=== PATIENT | female | born 1990 | race Caucasian/White ===

== ENCOUNTER 2023-05-21 04:31 | Outpatient (CLI) | payer OTHER ==
[2023-05-21] MEDS: LACTATED RINGERS 1,000 ML IV ONE (04:45)
[2023-05-21] MEDS: ACETAMINOPHEN IV (For NPO) 1,000 MG in EMPTY BAG 1 BAG IVPB ONE (04:57)
[2023-05-21 05:17] LABS: Basophils % (A) 0 %; Eosinophils # (A) 0.1 k/uL (0-0.7); Eosinophils % (A) 1 %; HCT 33.5 % (34.0-46.0); HGB 11.8 gm/dL (11.4-16.0); Lymphocytes # (A) 1.7 k/uL (1.0-4.8); Lymphocytes % (A) 15 %; MCH 30.9 pg (25.0-35.0); MCHC 35.4 g/dL (31.0-37.0); MCV 87.4 fL (80.0-100.0); Mean Platelet Volume 7.6; Monocytes # (A) 0.4 k/uL (0-1.0); Monocytes % (A) 4 %; Neutrophils # (A) 8.5 k/uL (1.3-7.7); Neutrophils % (A) 79 %; Platelet Count 254 k/uL (150-450); RBC 3.83 m/uL (3.80-5.40); RDW 13.5 % (11.5-15.5); WBC 10.8 k/uL (3.8-10.6)
[2023-05-21 05:30] LABS: ALT 23 U/L (4-34); AST 53 U/L (14-36); Amylase 71 U/L (30-110); Lipase 191 U/L (23-300)
--- NOTE | 2023-05-21 07:14 | US ---
EXAMINATION TYPE: US gallbladder DATE OF EXAM: 05/21/2023 COMPARISON: NONE CLINICAL INDICATION: Female, 33 years old with history of acute upper right quadrant abdominal pain.; RUQ pain x 3 hours. Pt is 23 weeks TECHNIQUE: Multiple sonographic images of the right upper quadrant are obtained. FINDINGS: EXAM MEASUREMENTS: Liver Length: 17.6 cm Gallbladder Wall: 0.2 cm CBD: 0.3 cm Right Kidney: 10.1 x 4.9 x 4.5 cm Pancreas: Tail limited. Parts seen appear wnl Liver: Heterogeneous, possibly enlarged Gallbladder: Multiple gallstones seen Evidence for sonographic Bustillos's sign: No CBD: wnl Right Kidney: wnl IMPRESSION: 1. No evidence for acute process. 2. Cholelithiasis.
--- NOTE | 2023-05-21 11:26 | P.GSCN ---
History of Present Illness Consult date: 05/21/23 History of present illness: CHIEF COMPLAINT: Abdominal pain HISTORY OF PRESENT ILLNESS: This is a 33-year-old female who is 23 weeks . She presented to the hospital with complaints of right upper quadrant abdominal pain that started at 2 AM yesterday morning. Patient reports eating [place]ian and egg rolls for dinner last night. Patient reports having similar symptoms about 2 weeks ago that resolved on their own. Patient reports that her pain was not improving therefore she came into the ER. She did have episode of diarrhea she is also having some nausea. The pain was radiating from the right upper quadrant to her back. She denies any fever chills or sweats. Denies any prior abdominal surgeries. Ultrasound has shown evidence of cholelithiasis. Her AST was mildly elevated. PAST MEDICAL HISTORY: See below PAST SURGICAL HISTORY: See below MEDICATIONS: See below ALLERGIES: See below SOCIAL HISTORY: No illicit drug use. REVIEW OF SYSTEMS: CONSTITUTIONAL: Denies fever or chills. HEENT: Denies blurred vision, vision changes, or eye pain. Denies hemoptysis CARDIOVASCULAR: Denies chest pain or pressure. RESPIRATORY: No shortness of breath. GASTROINTESTINAL: See HPI for pertinent findings HEMATOLOGIC: Denies bleeding disorders. GENITOURINARY: Denies any blood in urine or increased urinary frequency. SKIN: Denies pruitis. Denies rash. PHYSICAL EXAM: VITAL SIGNS: Reviewed GENERAL: Well-developed in no acute distress. HEENT: No sclera icterus. Extraocular movements grossly intact. Moist buccal mucosa. Head is atraumatic, normocephalic. No nasal drainage. ABDOMEN: Soft. Nondistended. Minimal right upper quadrant tenderness with palpation NEUROLOGIC: Alert and oriented. Cranial nerves II through XII grossly intact. LABORATORY DATA: WBC 10.8 Hgb 11.8 platelets 254 AST 53 ALT 23 amylase 71 lipase 191 IMAGING: Gallbladder ultrasound no evidence for acute process. Cholelithiasis ASSESSMENT: 1. Symptomatic cholelithiasis 2. Right upper quadrant abdominal pain 3. Mildly elevated AST 4. 23 weeks PLAN: -Patient's pain has improved. Will trial low-fat diet. If patient tolerates diet, she can be discharged home with outpatient follow-up with Dr. Villatoro. Physician Organ Pipe Voicer note has been reviewed by physician. Signing provider agrees with the documented findings, assessment, and plan of care. I have personally seen and examined the patient, reviewed the PLUG SHAPER HAND /PAs history, exam and MDM and agree with the assessment and plan as written. Based on total visit time, I have performed more than 50% of the visit. As above: Patient with symptomatic cholelithiasis. May discharge if tolerates diet. Follow-up as outpatient. Past Medical History History of Any Multi-Drug Resistant Organisms: None Reported Smoking Status: Never smoker Medications and Allergies Home Medications Medication Instructions Recorded Confirmed Type Aspirin [Holcomb Aspirin EC] 81 mg PO DAILY 05/21/23 05/21/23 History Vit No.179/Iron/Folic 1 tablet PO DAILY 05/21/23 05/21/23 History [ Tablet] Allergies Allergy/AdvReac Type Severity Reaction Status Date / Time No Known Allergies Allergy Verified 05/21/23 04:34 Results - Labs 05/21/23 04:50 Abnormal Lab Results - Last 24 Hours (Table) 05/21/23 05/21/23 Range/Units 04:50 04:50 WBC 10.8 H (3.8-10.6) k/uL Hct 33.5 L (34.0-46.0) % Neutrophils # 8.5 H (1.3-7.7) k/uL AST 53 H (14-36) U/L Diabetes panel 05/21/23 Range/Units 04:50 AST 53 H (14-36) U/L ALT 23 (4-34) U/L Adrenal panel 05/21/23 Range/Units 04:50 AST 53 H (14-36) U/L ALT 23 (4-34) U/L
[2023-05-21 12:08] VITALS: BP 132/78; PULSE 87; RESP 16; TEMP 96.8
== END 2023-05-21 11:50 | disposition home or self-care (01) ==
LOC: FBPOP 04:31
PROVIDERS: ATTEND Obstetrics & Gynecology Obstetrics
DX: O26.612 Liver and biliary tract disorders in pregnancy, second trimester (principal); O99.891 Other specified diseases and conditions complicating pregnancy; K80.20 Calculus of gallbladder without cholecystitis without obstruction; R74.01 Elevation of levels of liver transaminase levels; Z3A.23 23 weeks gestation of pregnancy
CPT/HCPCS: 99214; 96361; 96365; 82150; 83690; 84450; 84460; 85025; 76705; J0131

== ENCOUNTER 2023-07-09 13:13 | Outpatient (CLI) | payer OTHER ==
[2023-07-09 14:30] LABS: Appearance,Urine Clear (Clear); Bilirubin,Urine Negative (Negative); Blood,Urine Negative (Negative); Color,Urine Yellow; Glucose,Urine (UA) Trace (Negative); Ketones,Urine Negative (Negative); Leukocyte Esterase,Urine Negative (Negative); Nitrite,Urine Negative (Negative); PH, Urine 6.5 (5.0-8.0); Protein,Urine Trace (Negative); Urobilinogen,Urine <2.0 mg/dL (<2.0)
[2023-07-09 15:05] LABS: Basophils % (A) 0 %; Eosinophils # (A) 0.1 k/uL (0-0.7); Eosinophils % (A) 1 %; HCT 33.4 % (34.0-46.0); HGB 10.9 gm/dL (11.4-16.0); Lymphocytes # (A) 1.6 k/uL (1.0-4.8); Lymphocytes % (A) 20 %; MCH 28.9 pg (25.0-35.0); MCHC 32.6 g/dL (31.0-37.0); MCV 88.6 fL (80.0-100.0); Monocytes # (A) 0.4 k/uL (0-1.0); Monocytes % (A) 5 %; Neutrophils # (A) 5.9 k/uL (1.3-7.7); Neutrophils % (A) 73 %; Platelet Count 249 k/uL (150-450); RBC 3.78 m/uL (3.80-5.40); RDW 13.6 % (11.5-15.5); WBC 8.2 k/uL (3.8-10.6)
[2023-07-09 15:17] LABS: ALT 11 U/L (4-34); AST 16 U/L (14-36); African American GFR (CKD) >90 (>60 ml/min/1.73 sqM); Blood Urea Nitrogen 4 mg/dL (7-17); LDH 153 U/L (120-246); Non-African American GFR(CKD) >90 (>60 ml/min/1.73 sqM); Uric Acid 4.6 mg/dL (3.7-7.4)
[2023-07-09 15:44] LABS: Creatinine,Urine Random 150.9 mg/dL; Protein/Creatinine Ratio,Urine 0.06
[2023-07-09 16:45] VITALS: BP 138/86; PULSE 113; RESP 16; TEMP 96.6
== END 2023-07-09 16:03 | disposition home or self-care (01) ==
LOC: FBPOP 13:13
PROVIDERS: ATTEND Obstetrics & Gynecology
DX: Z53.9 Procedure and treatment not carried out, unspecified reason (principal)
CPT/HCPCS: 59025; 81003; 82565; 82570; 83615; 84156; 84450; 84460; 84520; 84550; 85025; 99215

== ENCOUNTER 2023-09-01 06:00 | Inpatient (IN) | payer OTHER ==
[2023-09-01] MEDS ORDERED: miSOPROStoL 200 MCG TAB PO PRN (06:58)
[2023-09-01] MEDS ORDERED: OXYTOCIN 10 UNIT/ML 1 ML VIAL IM PRN (06:58)
[2023-09-01] MEDS ORDERED: TRANEXAMIC 1,000 MG/100ML-NACL 1,000 MG in EMPTY BAG 1 BAG IV PRN (06:58)
[2023-09-01] MEDS ORDERED: METHYLERGONOVINE 0.2 MG/ML 1 ML AMP IM PRN (06:58)
[2023-09-01] MEDS ORDERED: CARBOPROST TROMETHAMINE 250 MCG/ML 1 ML AMP IM PRN (06:58)
[2023-09-01] MEDS ORDERED: TERBUTALINE 1 MG/ML VIAL SQ PRN (06:58)
[2023-09-01] MEDS: LACTATED RINGERS 1,000 ML IV SCH (07:00)
[2023-09-01] MEDS: OXYTOCIN 30 UNITS/500 ML NS 30 UNIT in SALINE 1 500ML.BAG IV SCH (07:15)
[2023-09-01] MEDS: PENICILLIN G POTASSIUM 5,000,000 UNIT in DEXTROSE 5% IN WATER 100 ML IVPB STA (07:15)
[2023-09-01 07:26] LABS: Basophils % (A) 0 %; Eosinophils # (A) 0.1 k/uL (0-0.7); Eosinophils % (A) 1 %; HCT 36.3 % (34.0-46.0); HGB 11.6 gm/dL (11.4-16.0); Lymphocytes # (A) 1.9 k/uL (1.0-4.8); Lymphocytes % (A) 19 %; MCH 28.1 pg (25.0-35.0); MCV 87.7 fL (80.0-100.0); Mean Platelet Volume 8.2; Monocytes # (A) 0.5 k/uL (0-1.0); Monocytes % (A) 5 %; Neutrophils # (A) 7.4 k/uL (1.3-7.7); Neutrophils % (A) 73 %; Platelet Count 287 k/uL (150-450); RBC 4.14 m/uL (3.80-5.40); RDW 14.4 % (11.5-15.5); WBC 10.1 k/uL (3.8-10.6)
--- NOTE | 2023-09-01 07:36 | P.HPOB ---
History of Present Illness H&P Date: 09/01/23 Chief Complaint: induced hypertension 33-year-old 1 para 0 woman with an estimated due date of 09/14/2023 based on LMP consistent with first trimester ultrasound. She is admitted at 38+ weeks gestation for induction of labor secondary to -induced hypertension. She has been maintained on labetalol 200 mg twice a day with negative preeclamptic workup throughout. testing with weekly NSTs have all been reassuring. The has otherwise been complicated with gallstones that she is currently managing with the dietary changes and has followed with general surgery for Plans post .She is known group B strep positive. Laboratory data: Blood type AB+, antibody screen negative, rubella immune, V-year-old nonreactive, hepatitis B surface antigen negative, HIV negative, hep C negative, gonorrhea and clinic cultures negative, diabetes screening within normal limits, maternity 21 testing negative, group B strep positive Past medical history anxiety, cholestasis Past surgical history benign teratoma removal 2004 next Family history patient is adopted but known diabetes and hypertension next para social history she is Engaged to be , negative for tobacco alcohol and drug use. On initial assessment on labor and delivery triage patient's blood pressure is 124/79, on cervical exam she is 3-4 cm dilated, 70% and vertex in the -3 station. Artificial rupture of membranes is undertaken and clear fluid is n oted. status is currently reassuring with category 1 heart tones and no active contractions. Review of Systems All systems: negative Past Medical History Additional Past Medical History / Comment(s): Cholestasis History of Any Multi-Drug Resistant Organisms: None Reported Smoking Status: Never smoker Medications and Allergies Home Medications Medication Instructions Recorded Confirmed Type Aspirin [Crowley Aspirin EC] 81 mg PO DAILY 05/21/23 09/01/23 History Vit No.179/Iron/Folic 1 tablet PO DAILY 05/21/23 09/01/23 History [ Tablet] Labetalol [Trandate] 1 tab PO BID 09/01/23 09/01/23 History Allergies Allergy/AdvReac Type Severity Reaction Status Date / Time No Known Allergies Allergy Verified 07/09/23 13:41 Exam Intake and Output 08/31/23 09/01/23 09/01/23 22:59 06:59 14:59 Other: Weight 129.727 kg Results Result Diagrams: 09/01/23 07:00 Assessment and Plan (1) 38 weeks gestation of Current Visit: Yes Status: Acute Code(s): Z3A.38 - 38 WEEKS GESTATION OF SNOMED Code(s): 19160696 (2) induced hypertension Current Visit: Yes Status: Acute Code(s): O13.9 - GESTATIONAL HTN W/O SIGNIFICANT PROTEINURIA, UNSP TRIMESTER SNOMED Code(s): 53367902 (3) GBS (group B Streptococcus carrier), +RV culture, currently Current Visit: Yes Status: Acute Code(s): O99.820 - STREPTOCOCCUS B CARRIER STATE COMPLICATING SNOMED Code(s): 8601549092849 Plan: 33-year-old 1 para 0 admitted at 38+ weeks gestation for induction of labor secondary to -induced high per tension, no evidence of superimposed preeclampsia. She is group B strep positive and prophylactic and Antibiotics have been initiated per protocol. Status currently reassuring, anticipate normal spontaneous vaginal delivery. May have epidural anesthetic upon request in active labor.
[2023-09-01] MEDS ORDERED: fentaNYL (PF) 50 MCG/ML 5 ML AMP ONE (09:59)
[2023-09-01] MEDS ORDERED: ROPIVACAINE 5 MG/ML 30 ML VIAL ONE (09:59)
[2023-09-01] MEDS ORDERED: SODIUM CHLORIDE 0.9% 250 ML BAG ONE (09:59)
[2023-09-01] MEDS: PENICILLIN G POTASSIUM 2,500,000 UNIT in DEXTROSE 5% IN WATER 100 ML IVPB SCH (12:15)
[2023-09-01] MEDS: LIDOCAINE 0.5% (PF) 5 MG/ML (50 ML SDV) SQ PRN (14:52)
[2023-09-01] MEDS ORDERED: HYDROCORTISONE 2.5% RECTAL CREAM 30 GM TUBE RECTAL PRN (15:22)
[2023-09-01] MEDS ORDERED: ZOLPIDEM 5 MG TAB PO PRN (15:22)
[2023-09-01] MEDS ORDERED: diphenhydrAMINE 50 MG/ML 1 ML VIAL IVP PRN ×2 (15:22)
[2023-09-01] MEDS ORDERED: IBUPROFEN 600 MG TAB PO PRN (15:22)
[2023-09-01] MEDS ORDERED: LANOLIN CREAM 1 GM TUBE TOPICAL PRN (15:22)
[2023-09-01] MEDS ORDERED: BENZOCAINE/MENTHOL SPRAY 1 GM/SPRAY AEROSOL TOPICAL PRN (15:22)
[2023-09-01] MEDS ORDERED: diphenhydrAMINE 50 MG CAP PO PRN (15:22)
[2023-09-01] MEDS ORDERED: diphenhydrAMINE 25 MG CAP PO PRN (15:22)
[2023-09-01] MEDS ORDERED: ACETAMINOPHEN TAB 325 MG TAB PO PRN (15:22)
[2023-09-01] MEDS ORDERED: SIMETHICONE 80 MG CHEWABLE PO PRN (15:22)
--- NOTE | 2023-09-01 15:22 | P.PROBDLV ---
Vaginal Delivery Note - . Vaginal Delivery Note: findings: Male in the right occiput anterior position with Apgars of 2 at 1 minute and 8 at 5 minutes and 8 at 10 minutes. Weight 7 lbs. 15 oz. Second- degree midline episiotomy. Intact, three-vessel cord placenta. Delivery summary: This is a 33-year-old 1 para 0 woman who is admitted at 38+ weeks gestation for induction of labor secondary to -induced hypertension. Her blood pressures have been managed with labetalol with no evidence of superimposed preeclampsia. Following admission she underwent on the artificial rupture of membranes and Pitocin induction of labor. At approximately 7:30 AM she was 3-4 cm dilated. She did progress to 4+ centimeters dilated and requested and received an epidural. She did have some hypotension post epidural placement with some late appearing heart rate decelerations. These resolved with Pitocin cessation fluid bolus and blood pressure management. She reached complete cervical dilation at approximately 1340 and commenced pushing with excellent maternal effort.she did have episodes of deep variable heart rate decelerations down to the 60 bpm with recovery to baseline of 120 bpm. at 1420 she began having repetitive deep variable heart rate decelerations and she was repositioned, prepped and draped in the dorsal lithotomy position. with there was concern for possible impending shoulder dystocia therefore assistance was called to the room and patient was placed in the Louise position. lidocaine was infused in the perineum and a midline second-degree episiotomy was cut. With additional maternal effort the head did deliver from the right occiput anterior position. there was immediate turtle sign and shoulder dystocia was encountered . Patient was in Louise position and suprapubic pressure was given. The right shoulder was anterior and was internally rotated. There was a tight nuchal cord that with this maneuver disrupted. The internal rotation of the anterior shoulder did facilitate delivery of the right shoulder and the was delivered immediately afterwards. time of shoulder dystocia was between 30 and 45 seconds. Following delivery the infant was taken immediately to the warmer for assessment. Following delivery of the infant the perineum was inspected and a second-degree laceration was noted. This was infused with lidocaine and repaired with 3-0 Vicryl in the usual fashion. An intact, three-vessel cord placenta was expressed in the vagina and cervix were further inspected. Events of delivery were reviewed with the patient and the father of the baby and all questions were answered. The infant was taken to the special care nursery for further evaluation and assessment. was moving both extremities post delivery.
[2023-09-01] MEDS: SENNOSIDES-DOCUSATE SODIUM 1 EACH TAB PO SCH (20:30)
--- NOTE | 2023-09-02 07:38 | P.PNOBGVD ---
Subjective - Subjective Principal diagnosis: day 1 Interval history: Sore but is tolerable with oral pain medications. Moderate lochia. Patient reports: Reports appetite normal, Reports voiding normally, Reports pain well controlled [place]: doing well (In special care nursery, weaning 02 today.) Objective - Latest Vital Signs Latest vital signs: Vital Signs Temp Pulse Resp BP Pulse Ox 09/01/23 19:00 98.4 F 102 H 16 123/80 98 09/01/23 17:00 98.3 F 83 09/01/23 16:45 83 16 144/69 09/01/23 16:30 80 16 144/70 09/01/23 16:15 90 16 143/66 09/01/23 16:00 94 16 146/74 09/01/23 15:45 87 16 140/70 09/01/23 15:30 89 16 141/72 09/01/23 15:15 90 16 142/71 09/01/23 15:00 97.8 F 95 16 133/66 Intake and Output 09/01/23 09/02/23 09/02/23 22:59 06:59 14:59 Intake Total 167 Output Total 345 Balance -178 Intake: Intake, IV Titration 167 Amount Oxytocin 30 Units/500 ml 167 Ns 30 unit In Saline 1 500ml.bag @ Per Protocol IV .Q0M [facility] Rx#:[id number] Output: Estimated Blood Loss 145 Output, Quantitative 200 Blood Loss Other: # Voids 1 2 - Exam Lungs: bilateral: normal Extremities: Present: edema Abdomen: Present: soft Uterus: Present: normal Assessment and Plan (1) 38 weeks gestation of Current Visit: Yes Status: Acute Code(s): Z3A.38 - 38 WEEKS GESTATION OF SNOMED Code(s): 69470819 (2) induced hypertension Current Visit: Yes Status: Acute Code(s): O13.9 - GESTATIONAL HTN W/O SIGNIFICANT PROTEINURIA, UNSP TRIMESTER SNOMED Code(s): 36299915 (3) GBS (group B Streptococcus carrier), +RV culture, currently Current Visit: Yes Status: Acute Code(s): O99.820 - STREPTOCOCCUS B CARRIER STATE COMPLICATING SNOMED Code(s): 2345349831827 (4) Shoulder dystocia, delivered Current Visit: Yes Status: Acute Code(s): O66.0 - OBSTRUCTED LABOR DUE TO SHOULDER DYSTOCIA SNOMED Code(s): 97324359 (5) Nuchal cord Current Visit: Yes Status: Acute Code(s): O69.81X0 - LABOR AND DEL COMP BY CORD AROUND NECK, W/O COMPRSN, UNSP SNOMED Code(s): 285840158 (6) Normal spontaneous vaginal delivery Current Visit: Yes Status: Acute Code(s): O80 - ENCOUNTER FOR FULL-TERM UNCOMPLICATED DELIVERY SNOMED Code(s): 14340056 (7) Perineal laceration with delivery, second degree Current Visit: Yes Status: Acute Code(s): O70.1 - SECOND DEGREE PERINEAL LACERATION DURING DELIVERY SNOMED Code(s): 3430864 Plan: day 1 status post normal spontaneous vaginal delivery complicated by shoulder dystocia. History of -induced hypertension. Blood pressures stable overnight without antihypertensives. Evidence of delivery were reviewed in detail with Nazia and the father of the baby. All questions were answered. Infant is currently doing well in the special care nursery with plans to wean O2. Imaging shows no evidence of injury and the is moving both upper extremities normally at this time. Plan for routine care with probable discharge home tomorrow
[2023-09-02 08:56] LABS: Basophils % (A) 0 %; Eosinophils # (A) 0.1 k/uL (0-0.7); Eosinophils % (A) 1 %; HCT 32.5 % (34.0-46.0); HGB 10.5 gm/dL (11.4-16.0); Lymphocytes # (A) 1.8 k/uL (1.0-4.8); Lymphocytes % (A) 15 %; MCH 28.4 pg (25.0-35.0); MCHC 32.2 g/dL (31.0-37.0); Mean Platelet Volume 8.9; Monocytes # (A) 0.5 k/uL (0-1.0); Monocytes % (A) 4 %; Neutrophils # (A) 9.6 k/uL (1.3-7.7); Neutrophils % (A) 79 %; Platelet Count 231 k/uL (150-450); RBC 3.69 m/uL (3.80-5.40); RDW 14.5 % (11.5-15.5); WBC 12.2 k/uL (3.8-10.6)
[2023-09-03 09:04] VITALS: RESP 15
--- NOTE | 2023-09-03 09:04 | P.DS ---
Providers Date of admission: 09/01/23 06:39 Expected date of discharge: 09/03/23 Attending physician: Nazia Swift Primary care physician: Stated None - Discharge Diagnosis(es) (1) 38 weeks gestation of Current Visit: Yes Status: Acute (2) induced hypertension Current Visit: Yes Status: Acute (3) GBS (group B Streptococcus carrier), +RV culture, currently Current Visit: Yes Status: Acute (4) Shoulder dystocia, delivered Current Visit: Yes Status: Acute (5) Nuchal cord Current Visit: Yes Status: Acute (6) Normal spontaneous vaginal delivery Current Visit: Yes Status: Acute (7) Perineal laceration with delivery, second degree Current Visit: Yes Status: Acute Hospital Course: This is a 33-year-old 1 now para 1 woman who is admitted at 38+ weeks gestation for induction of labor secondary to -induced hypertension. She was admitted on and underwent standard Pitocin induction of labor with artificial rupture of membranes. She received group B strep prophylactic antibiotics. She received an epidural anesthetic. Ultimately she had a spontaneous vaginal delivery that was complicated by moderate shoulder dystocia. This was resolved using Midline episiotomy, Louise position, suprapubic pressure and internal rotation of the anterior shoulder. The did have an extremely tight nuchal cord as well. Please see the delivery summary for complete details. Apgars were 2 at 1 minute and 8 at 5 minutes and 8 at 10 minutes. The infant was admitted to the special care nursery for further evaluation. There is no evidence of clavicle or humerus fracture on imaging. By day #1 the patient was doing well with moderate lochia. She was ambulating and voiding without difficulty. Her blood pressures remained mainly in the 140s over 70s and 80s off of her antepartum labetalol. By day #2 she continued to do very well on. She was breast-feeding the in the special care nursery who was weaned from oxygen at this point. The patient's labs were within normal limits. Patient was discharged home on day #2 with anticipated discharge of the infant in the next 48-72 hours. Patient Condition at Discharge: Good Plan - Discharge Summary New Discharge Prescriptions: New Ibuprofen [Motrin] 600 mg PO Q6HR PRN #0 tab PRN Reason: Mild Pain (Scale 1 To 3) Sennosides-Docusate Sodium [Senokot-S] 2 each PO BID@799,1999 tab Continue Vit No.179/Iron/Folic [ Tablet] 1 tablet PO DAILY Labetalol [Trandate] 1 tab PO BID Discontinued Aspirin [S[place]ier Aspirin EC] 81 mg PO DAILY Discharge Medication List Vit No.179/Iron/Folic [ Tablet] 1 tablet PO DAILY 05/21/23 [History] Labetalol [Trandate] 1 tab PO BID 09/01/23 [History] Ibuprofen [Motrin] 600 mg PO Q6HR PRN #0 tab 09/03/23 [Rx] Sennosides-Docusate Sodium [Senokot-S] 2 each PO BID@799,1999 tab 09/03/23 [Rx] Follow up Appointment(s)/Referral(s): Nazia Swift MD [STAFF PHYSICIAN] - 10/12/23 10:45 am Activity/Diet/Wound Care/Special Instructions: Follow-up in the office in 2 weeks For blood pressure check and 6 weeks . Notify the office with any blood pressures greater than 180 systolic or 100 diastolic. Call with any concerning signs or symptoms including heavy vaginal bleeding, severe abdominal pain, fever greater than 101, swelling or redness of the lower extremities, foul vaginal discharge, or signs of depression. Nothing in the vagina for 6 weeks after delivery, specifically no i ntercourse. Discharge Disposition: HOME SELF-CARE
[2023-09-03 16:00] VITALS: BP 160/97; PULSE 99; TEMP 98.5
== END 2023-09-03 18:20 | disposition home or self-care (01) | DRG 806 ==
LOC: 4FBP 06:39
PROVIDERS: ADMIT Obstetrics & Gynecology; ATTEND Obstetrics & Gynecology
PROC: 10E0XZZ Delivery of Products of Conception, External Approach (ICD-10-PCS; principal; 2023-09-01)
PROC: 0KQM0ZZ Repair Perineum Muscle, Open Approach (ICD-10-PCS; 2023-09-01)
PROC: 0W8NXZZ Division of Female Perineum, External Approach (ICD-10-PCS; 2023-09-01)
DX: O76 Abnormality in fetal heart rate and rhythm complicating labor and delivery (principal); O26.62 Liver and biliary tract disorders in childbirth; Z37.0 Single live birth; O13.4 Gestational [pregnancy-induced] hypertension without significant proteinuria, complicating childbirth; O66.0 Obstructed labor due to shoulder dystocia; K80.20 Calculus of gallbladder without cholecystitis without obstruction; O69.1XX0 Labor and delivery complicated by cord around neck, with compression, not applicable or unspecified; O99.824 Streptococcus B carrier state complicating childbirth; Z79.82 Long term (current) use of aspirin; Z3A.38 38 weeks gestation of pregnancy
CPT/HCPCS: 85025; 86850; 86900; 86901

== ENCOUNTER 2023-12-07 10:15 | Day surgery (SDC) | payer OTHER ==
[~2023-12-07 10:15] MED LIST: LIDOCAINE 1% (10MG/ML) FOR IV START INTRADERMA PRN; SCOPOLAMINE 1 MG/72 HR PATCH TRANSDERM ONE; droPERidol 5 MG/2 ML VIAL IVP ONE
--- NOTE | 2023-12-07 10:26 | P.GSHP ---
History of Present Illness H&P Date: 12/07/23 Chief Complaint: Chronic cholecystitis 33-year-old female last seen in April. Patient with history of cholecystitis during . Had mild liver enzyme elevation at the time of her attacks. Ultrasound showed gallstones without wall thickening. Patient called recently after the delivery and stated she was still having some symptoms and wanted to proceed with surgery. 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 Past Anesthesia/Blood Transfusion Reactions: No Reported Reaction Smoking Status: Never smoker - Past Family History Mother Family Medical History: Hypertension Medications and Allergies Home Medications Medication Instructions Recorded Confirmed Type No Known Home Medications 12/01/23 12/01/23 History Allergies Allergy/AdvReac Type Severity Reaction Status Date / Time No Known Allergies Allergy Verified 12/01/23 11:33 Surgical - Exam Physical exam: General: Well-developed, well-nourished HEENT: Normocephalic, sclerae nonicteric Abdomen: Nontender, nondistended Extremities: No edema Neuro: Alert and oriented Assessment and Plan (1) Chronic cholecystitis Narrative/Plan: 31-year-old female with chronic cholecystitis. Will proceed with laparoscopic cholecystectomy, possible open cholecystectomy at this time. Risks of bleeding, infection, bile leak, bile duct injury, retained common bile duct stone, trocar injury, conversion to an open procedure, hernia, anesthesia related complications were reviewed. The patient understands and wishes to proceed. Current Visit: Yes Status: Acute Code(s): K81.1 - CHRONIC CHOLECYSTITIS SNOMED Code(s): 51676019
[2023-12-07] MEDS: ONDANSETRON 4 MG/2 ML VIAL IVP PRN (11:07)
[2023-12-07] MEDS: DEXAMETHASONE SOD PHOSPHATE 4 MG/ML 1 ML VIAL IV ONE (11:07)
[2023-12-07] MEDS: ACETAMINOPHEN TAB 500 MG TAB PO PRN (11:08)
[2023-12-07] MEDS: HEPARIN SODIUM,PORCINE 5,000 UNIT/ML 1 ML VIAL SQ PRN (11:08)
[2023-12-07] MEDS: LACTATED RINGERS 1,000 ML IV SCH (11:15)
[2023-12-07] MEDS: IV FLUID CONTINUATION 1,000 ML IV ONE ×2 (11:16→13:21)
[2023-12-07] MEDS: LIDOCAINE 1%-EPI 1:100,000 20 ML VIAL SQ ONE (11:20)
[2023-12-07] MEDS ORDERED: GLYCOPYRROLATE 0.2 MG/ML 2 ML VIAL ONE (11:22)
[2023-12-07] MEDS ORDERED: fentaNYL (PF) 50 MCG/ML 2 ML AMP ONE (11:22)
[2023-12-07] MEDS ORDERED: SUCCINYLCHOLINE CHLORIDE 200 MG/10 ML VIAL IV ONE (11:22)
[2023-12-07] MEDS ORDERED: MIDAZOLAM 2 MG/2 ML VIAL ONE (11:22)
[2023-12-07] MEDS ORDERED: ROCURONIUM 10 MG/ML (5 ML VIAL) IV ONE (11:22)
[2023-12-07] MEDS ORDERED: LIDOCAINE 1% INJ 10MG/ML (20 ML MDV) ONE (11:22)
[2023-12-07] MEDS ORDERED: PROPOFOL 10 MG/ML 20 ML VIAL IV ONE (11:22)
[2023-12-07] MEDS ORDERED: HYDROmorphone (PF) 1 MG/ML ONE (11:22)
[2023-12-07] MEDS ORDERED: NEOSTIGMINE 1 MG/ML 10 ML VIAL ONE (11:22)
[2023-12-07] MEDS ORDERED: KETOROLAC 30 MG/ML 1 ML VIAL ONE (11:22)
--- NOTE | 2023-12-07 12:22 | P.OP ---
Date of Procedure: 12/07/23 Procedure(s) Performed: PREOPERATIVE DIAGNOSIS: Chronic cholecystitis POSTOPERATIVE DIAGNOSIS: Same PROCEDURE: Laparoscopic cholecystectomy SURGEON: Shauna EBL: Minimal see anesthesia record ANESTHESIA: Gen. COMPLICATIONS: None OPERATIVE PROCEDURE: The patient was brought and placed on the operating room table in the supine position. The patient was placed under general anesthesia at that time. The abdomen was prepped and draped in the usual sterile fashion. A small vertical infraumbilical incision was made. The fascia was grasped with the Denis forceps. The fascia was retracted anteriorly. The Veress needle was advanced into the peritoneal cavity. The saline drop test was normal. Insufflation took place up to 15 mmHg. A 5 mm optical trocar was advanced and the peritoneal cavity. 2 additional 5 mm trochars were placed in the right upper quadrant under direct visualization. A 12 mm trocar was advanced into the epigastric incision site. The gallbladder was retracted superiorly and laterally. The peritoneum overlying the infundibulum was bluntly dissected. The patient's cystic duct was visualized. The junction between the cystic duct common and hepatic duct was identified. The critical view of safety was achieved after blunt dissection. The cystic duct was then divided after placement of 3 12 mm clips on the patient's side and one on the specimen side. The cystic artery was identified and clipped as well. A small vessel was seen along the gallbladder fossa and clipped as well. The gallbladder was then removed from the liver bed using electrocautery. The gallbladder was then removed from the epigastric trocar site with an Endo Catch bag. The gallbladder fossa was irrigated with saline. There was no evidence of any bleeding or biliary drainage seen. The fascia at the 12 millimeter site was closed using a Venkata-Madan 0 Vicryl stitch. The trochars were then removed. The skin at all 4 sites was closed using a 4-0 Monocryl stitch. Skin glue was utilized on the incision sites. At the end of this procedure the sponge and needle counts were correct. DISPOSITION: Stable to the recovery room
[2023-12-07 12:30] VITALS: RESP 16; TEMP 97.6
[2023-12-07] MEDS: HYDROmorphone 0.5 MG/0.5 ML SYRINGE IVP PRN (12:50)
[2023-12-07 14:03] VITALS: BP 135/85; PULSE 68
[2023-12-07] MEDS ORDERED: IBUPROFEN 600 MG TAB PO SCH (15:30)
[2023-12-07] MEDS ORDERED: ACETAMINOPHEN TAB 325 MG TAB PO SCH (18:30)
== END 2023-12-07 14:34 | disposition home or self-care (01) ==
LOC: OR 10:15
PROVIDERS: ATTEND Surgery
DX: K81.1 Chronic cholecystitis (principal)
CPT/HCPCS: 81025; 88304